=== PATIENT | male | born 1985 | race Caucasian/White ===

== ENCOUNTER 2017-02-17 14:45 | Emergency (ER) | payer MEDICAID, OTHER ==
[~2017-02-17] VITALS: Ht 167.6 cm; Wt 86.2 kg
[2017-02-17 15:03] VITALS: BP 131/69
--- NOTE | 2017-02-17 15:39 | NUR ---
Patient to bed 12.
--- NOTE | 2017-02-17 15:45 | NUR ---
31M BIB FAMILY C/O ANXIETY X TODAY; PT STATES " I HAVEN'T SLEPT FOR 7 DAYS BECAUSE I'VE BEEN MESSING AROUND WITH DIFFERENT DRUGS, AND I FEEL ANXIOUS TODAY"; PT C/O LEFT SIDE POSTERIOR HEADACHE, ACHING, NON-RADIATING, 10/06 X TODAY; PT STATES NO TRAUMA OR INJURY TO SITE AT THIS TIME; PT C/O 3 EPISODES OF DIARRHEA AND NAUSEA TODAY, BUT STATES NO VOMITING AT THIS TIME; ABDOMEN SOFT, NON-TENDER, ACTIVE BOWEL SOUNDS X 4 QUADRANTS; PT AA&OX4, PERRLA, BL LUNG SOUNDS CLEAR, RR EVEN/UNLABORED, SKIN IS WARM/DRY/INTACT AT THIS TIME; PT RESTING IN BED WITH HOB ELEVATED AND IN LOWEST POSITION; POSITIONED FOR COMFORT; ER MD MADE AWARE OF STATUS. WILL CONTINUE TO MONITOR.
--- NOTE | 2017-02-17 15:49 | NUR ---
ER MD DR. NEGRO EVALUATING PT AT BEDSIDE.
[2017-02-17 16:02] VITALS: BP 131/69
--- NOTE | 2017-02-17 16:02 | NUR ---
PATIENT ELOPED FROM FACILITY. DISCHARGE INSTRUCTIONS NOT GIVEN TO PATIENT. DR. NEGRO NOTIFIED.
== END 2017-02-17 16:02 | disposition home or self-care (01) ==
LOC: MED 14:45
DX: F41.9 Anxiety disorder, unspecified (principal); R00.2 Palpitations; R03.0 Elevated blood-pressure reading, without diagnosis of hypertension
CPT/HCPCS: 99284

== ENCOUNTER 2017-12-22 17:55 | Emergency (ER) | payer MEDICAID ==
[~2017-12-22] VITALS: Ht 172.7 cm; Wt 95.3 kg
[2017-12-22 18:08] VITALS: BP 121/103
--- NOTE | 2017-12-22 18:08 | NUR ---
PT PUT IN CHAIR E. REPORT GIVEN TO MARLENE CHARGE NURSE
--- NOTE | 2017-12-22 18:10 | NUR ---
32 Y/O M [employer] IN CUSTODY TO GET CLEARED FOR BOOKING. PT WAS TAKEN TO THE GROUND AND HAS ABRASION TO HEAD. PT DENIES N/V/D; SKIN IS INTACT, PINK/WARM/DRY; AAOX4, PERRL, WITH EVEN AND STEADY GAIT; LUNGS CLEAR BL, BREATHING UNLABORED; HR EVEN AND REGULAR, BL PERIPHERAL PULSES PRESENT; BS ACTIVE X4, NO TENDERNESS TO PALPATION, NO HEPATOSPLENOMEGALLY PALPATED, RESONANT TO PERCUSSION; PT DENIES ANY FEVER, CP, SOB, OR COUGH AT THIS TIME; PT STATES 0/10 PAIN AT THIS TIME; VSS; PATIENT POSITIONED FOR COMFORT; HOB ELEVATED; BEDRAILS UP X2; BED DOWN.
[2017-12-22 19:21] VITALS: BP 121/103
--- NOTE | 2017-12-22 19:21 | NUR ---
PATIENT [facility] POLICE DEPT. PATIENT EXAMINED BY DR. Galan. PATIENT MEDICALLY CLEARED AND RELEASED IN CUSTODY IN STABLE CONDITION. ORIGINAL PRE-BOOK FORM GIVEN TO OFFICER [facility].
--- NOTE | 2017-12-22 19:21 | NUR ---
Patient discharged with v/s stable. Written and verbal after care instructions given and explained. Patient verbalized understanding.Ambualted with Police with in custody. All questions addressed prior to discharge. Advised to follow up with PMD.
== END 2017-12-22 19:21 | disposition home or self-care (01) ==
LOC: MED 17:55
DX: Z02.89 Encounter for other administrative examinations (principal); S00.01XA Abrasion of scalp, initial encounter; I10 Essential (primary) hypertension; R03.0 Elevated blood-pressure reading, without diagnosis of hypertension; X58.XXXA Exposure to other specified factors, initial encounter; Y93.89 Activity, other specified; Y92.89 Other specified places as the place of occurrence of the external cause; Y99.8 Other external cause status
CPT/HCPCS: 99283

== ENCOUNTER 2022-01-17 09:26 | Emergency (ER) | payer MEDICAID ==
[~2022-01-17] VITALS: Ht 167.6 cm; Wt 84.4 kg
[2022-01-17 09:29] VITALS: BP 177/70
--- NOTE | 2022-01-17 09:37 | NUR ---
PATIENT AMBULATED TO BED 8
--- NOTE | 2022-01-17 09:47 | NUR ---
36YO MALE PT C/O INCREASED SHARP 8/10 LOWER BACK PAIN X3DAYS. STATES RADIATION DOWN TO R QUAD W/ PAIN AT MOST ON MOVEMENT OR BEARING WEIGHT. REPORTS S/S FROM LIFTING INJURY 1 YEAR AGO THAT SELF RELIEVED. DENIES RECENT NEW INJURY OR RELIEF AFTER TAKING NAPROXEN . PRESENTS W/O VISIBLE INJURY, NON TENDER TO TOUCH. AMBULATORY W/ UNSTEADY GAIT AND ABLE TO BEND AT WAIST WITH DISCOMFORT. PT AAOX4, RESPIRATIONS EVEN AND UNLABORED. HOB POSITIONED PER COMFORT. HX:DENIES NKA
--- NOTE | 2022-01-17 10:05 | NUR ---
MD NANCE AT BEDSIDE FOR EVALUATION
[2022-01-17] MEDS ORDERED: LIDOCAINE 5% 1 EA PATCH TP SCH (10:15)
[2022-01-17] MEDS ORDERED: KETOROLAC 15 MG/ML VIAL IM ONE (10:15)
--- NOTE | 2022-01-17 10:18 | NUR ---
PT TAKEN TO XRAY VIA WHEELCHAIR
--- NOTE | 2022-01-17 10:30 | NUR ---
PT BROUGHT BACK FROM [facility] VIA WHEELCHAIR
[2022-01-17] MEDS ORDERED: LID5T TP (11:18)
[2022-01-17] MEDS ORDERED: IBUP-1842 PO (11:18)
[2022-01-17] MEDS ORDERED: TRAM50TA1 PO (11:29)
[2022-01-17] MEDS ORDERED: traMADol 50 MG TAB PO ONE (11:35)
[2022-01-17 11:45] VITALS: BP 136/99
--- NOTE | 2022-01-17 12:31 | NUR ---
Patient discharged with v/s stable. Written and verbal after care instructions about muscle pain and sacroiliac joint dysfunction given and explained. Patient alert, oriented and verbalized understanding of instructions. Ambulatory with steady gait. All questions addressed prior to discharge. ID band removed. Patient advised to follow up with PMD. Rx of motrin and lidoderm patch given. Patient educated on indication of medication including possible reaction and side effects. Opportunity to ask questions provided and answered.
--- NOTE | 2022-01-17 12:32 | NUR ---
The patient's care was reviewed and supervised by Yane Barreto RN.
== END 2022-01-17 12:31 | disposition home or self-care (01) ==
LOC: MED 09:26
DX: M46.1 Sacroiliitis, not elsewhere classified (principal); G89.29 Other chronic pain; M25.551 Pain in right hip; I10 Essential (primary) hypertension; Z79.899 Other long term (current) drug therapy; Z79.1 Long term (current) use of non-steroidal anti-inflammatories (NSAID)
CPT/HCPCS: 73502; 96372; 99283; J1885

== ENCOUNTER 2022-05-11 01:19 | Emergency (ER) | payer MEDICAID ==
[~2022-05-11] VITALS: Ht 167.6 cm; Wt 72.6 kg
[~2022-05-11 01:19] MED LIST: IBUP-1842 PO; LID5T TP
--- NOTE | 2022-05-11 01:25 | NUR ---
PT REFUSING MEDICAL EVALUATION BY DR. CAMPUZANO. CLEARANCE FORM GIVEN TO OFFICER KATIE #[id number].
== END 2022-05-11 01:25 ==
LOC: MED 01:19
DX: T14.90XA Injury, unspecified, initial encounter (principal); I10 Essential (primary) hypertension; Z02.89 Encounter for other administrative examinations; Z79.899 Other long term (current) drug therapy; Y35.833A Legal intervention involving a conducted energy device, suspect injured, initial encounter; Y93.89 Activity, other specified; Y92.89 Other specified places as the place of occurrence of the external cause; Y99.8 Other external cause status
CPT/HCPCS: 99283